=== PATIENT | male | born 1945 | race Caucasian/White ===

== ENCOUNTER 2020-01-05 14:11 | Outpatient (CLI) | payer MEDICARE, SELFPAY ==
[2020-01-05 14:46] LABS: Basophils Percent Auto 0.3 % (0.2-1.2); Eosinophils Absolute Auto 0.1 K/mm3 (0-0.3); Eosinophils Percent Auto 0.7 % (0-4.4); Hematocrit 35.4 % (42.0-52.0); Hemoglobin 11.5 g/dL (14.0-18.0); Immature Granulocyte Absolute 0.09 K/mm3 (0.00-0.031); Immature Granulocyte Percent A 0.8 % (0-0.5); Lymphocytes Absolute Auto 1.11 K/mm3 (0.9-3.2); Lymphocytes Percent Auto 9.5 % (18.3-44.2); Mean Corpuscular HGB Conc 32.5 g/dl (32-36); Mean Corpuscular Hemoglobin 30.3 pg (26-34); Mean Corpuscular Volume 93.4 fl (80-100); Mean Platelet Volume 10.8 fl (7.4-10.4); Monocytes Absolute Auto 1.6 K/mm3 (0.1-0.6); Monocytes Percent Auto 13.7 % (2.6-8.5); Neutrophils Absolute Auto 8.7 K/mm3 (1.3-6.7); Platelet Count Result 204 k/mm3 (150-375); Red Blood Count 3.79 M/mm3 (4.6-6.20); Red Cell Distribution Width 12.8 % (11.5-14.5); White Blood Count 11.6 K/mm3 (4.5-10.0)
[2020-01-05 15:00] LABS: Blood Urea Nitrogen 13 mg/dL (9-20); Calcium 8.8 mg/dL (8.4-10.2); Carbon Dioxide 29 mmol/L (22-30); Chloride 101 mmol/L (98-107); Estimated Glomerular Filt Rate > 60; Glucose 185 mg/dL (75-110); Potassium 4.2 mmol/L (3.4-5.0); Sodium 133 mmol/L (137-145)
[2020-01-05 15:05] LABS: INR 2.8; Prothrombin Time 28.6 Seconds (11.1-14.7)
== END 2020-01-05 14:12 | disposition home or self-care (01) ==
PROVIDERS: PCP Internal Medicine; Visit Provider Internal Medicine
DX: L03.114 Cellulitis of left upper limb (principal); I48.91 Unspecified atrial fibrillation
CPT/HCPCS: 36415; 80048; 85025; 85610

== ENCOUNTER 2020-01-21 20:58 | Emergency (ER) | payer MEDICARE, SELFPAY ==
[2020-01-21 21:03] VITALS: BP 185/84; PULSE 73; RESP 15; TEMP 36.2; O2SAT 98
--- NOTE | 2020-01-21 21:19 | PC.NURSE ---
patient reports that he was unable to void and had a jones cath inserted on friday. had some tests done today to check bladder function and jones was dcd. patient states he was unable to void after the jones was removed. 16f jones inserted with 200cc output
--- NOTE | 2020-01-21 22:05 | ED.MALEGU ---
HPI - Male Genitourinary General Chief complaint: Urogenital-Male Stated complaint: i need to have a catheter put in Time Seen by Provider: 01/21/20 21:11 Source: patient Mode of arrival: ambulatory Limitations: no limitations History of Present Illness HPI Narrative: This patient is a 74 year old male who presents for evaluation of urinary retention. He states he was seen in ER on Friday for urinary retention, and he had a jones catheter placed. Today he was seen in Dr. Andrew' office, and he states he had test performed on his bladder. Per patient his test were ok so he had his jones catheter removed. He states he initially was able to urinate but starting at 130 pm he is having to try to strain to urinate. He states he is not even able to produce dribbles. He had mild abdominal pressure but this resolved once the jones catheter was placed tonight in ER. HE denies hematuria, nausea, vomiting or fever. MD Complaint: other (urinary retention) Related Data Home Medications Medication Instructions Recorded Confirmed phenazopyridine 200 mg tablet 200 mg PO TID 11/15/19 01/12/20 Allergies Allergy/AdvReac Type Severity Reaction Status Date / Time clemastine Allergy Severe URINARY Verified 01/12/20 10:38 RETENTION diphenhydramine Allergy Severe URINARY Verified 01/12/20 10:38 RETENTION menthol Allergy Severe URINARY Verified 01/12/20 10:38 RETENTION phenylpropanolamine Allergy Severe URINARY Verified 01/12/20 10:38 RETENTION tripelennamine Allergy Severe URINARY Verified 01/12/20 10:38 RETNETION triprolidine Allergy Severe URIANRY Verified 01/12/20 10:38 RETENTION Antihistamines - Alkylamine Allergy Unknown Anuria Verified 01/12/20 10:38 chlorpheniramine Allergy Unknown Unknown Verified 01/12/20 10:38 chlorphentermine Allergy Unknown unknown Verified 01/12/20 10:38 lisinopril Allergy Unknown unknown Verified 01/12/20 10:38 pseudoephedrine Allergy Unknown unknown Verified 01/12/20 10:38 tramadol Allergy Unknown unknown Verified 07/12/19 09:15 Review of Systems Review of Systems: All systems reviewed & are unremarkable except as noted in HPI and below Constitutional: Constitutional: Denies body ache(s) and Denies chills Gastrointestinal: Gastrointestinal: Denies abdominal pain, Denies belching and Denies hematochezia Genitourinary: Genitourinary: Denies hematuria, Denies genital lesions and Denies dysuria PMFSH Past Medical History Medical History (Updated 01/22/20 @ 01:11 by Shira Schaefer MD) Atrial fibrillation Body mass index (BMI) of 50.0 to 59.9 in adult Cellulitis Decreased urination Difficulty in urination DM2 (diabetes mellitus, type 2) Encounter for routine adult health examination without abnormal findings Follow up Hyperlipidemia Hypertension Obesity On custodial drug therapy Surgical History Surgical History (Updated 01/22/20 @ 01:03 by Shira Schaefer MD) H/O transurethral resection of prostate Social History Social History Smoking status: Never smoker Alcohol intake: never Gender identity (if verbalized by the patient): Male Exam Narrative: Exam Narrative: GENERAL: Well-appearing, well-nourished, and in no acute distress. HEAD: Normocephalic, atraumatic EYES: PERRLA and EOMI, conjunctiva clear without discharge THROAT:Mucous membranes moist, Oropharynx normal without erythema, exudate, peritonsillar swelling or fluctuance NECK: Supple, without lymphadenopathy or mass RESPIRATORY: No respiratory distress, Airway patent, Respirations non-labored, Clear to auscultation without rales, rhonchi or wheeze HEART: Regular rate and rhythm. No murmur heard. Normal peripheral pulses. ABDOMEN: Soft, nontender, nondistended, normal active bowel sounds. No masses. No rebound or guarding, No organomegaly. EXTREMITIES: No edema, normal strength with full range of motion. SKIN: Warm, dry,
--- NOTE | 2020-01-21 22:28 | PC.NURSE ---
patient reports that he does not believe his jones is in correctly. cath is patent and draining. balloon deflated and cath reinserted per patients request. dark mabel urine continues to drain
[2020-01-21 22:35] LABS: Add Urine Microscopic? YES; Appearance Urine Clear (Clear); Bilirubin Urine Negative (Negative); Blood Urine 2+ (Negative); Color Urine Amber (Yellow); Glucose Urine UA Negative (Negative); Ketones Urine Negative (Negative); Leukocyte Esterase Ur Trace LEU/UL (Negative); Mucus Urine Rare /lpf; Nitrate Urine Positive (Negative); Protein Urine Negative (Negative); RBC Urine 0-2 /hpf (0-2); Specific Grav Ur 1.009 (1.001-1.035); Squamous Epithelial Cell Urine Occasional /hpf (Few); WBC Urine 0-3 /hpf
--- NOTE | 2020-01-21 22:55 | PC.NURSE ---
Report received from RIGO Gleason. Pt's urinary catheter being replaced per patient request that it doesn't feel like it's in the right place .
[2020-01-21] MEDS: LIDOCAINE HCL 2% GEL UROJET 10 ML PKG (23:35)
--- NOTE | 2020-01-21 23:35 | PC.NURSE ---
Per administrative tech and Rosibel, RN, unable to inflate the balloon due to patient c/o pain and bleeding at the meatus. Dr. Schaefer made aware. This RN at bedside to attempt to replace #18 chinese jones. Lidocaine jelly used. Catheter passes into the urethra without difficulty per this RN, but unable to inflate the balloon. Attempt to irrigate unsuccessful. Pt hooked to jones bag with immediate return approx 40cc cricket blood. Attempt numerous times to irrigate the jones as well as inflate the balloon. Dr. Schaefer at bedside with ultrasound to view bladder.
[2020-01-21 23:50] VITALS: BP 169/98; PULSE 78; RESP 18; O2SAT 97
--- NOTE | 2020-01-21 23:50 | PC.NURSE ---
#18F jones placed earlier removed intact after numerous attempts to flush and inflate balloon. Note approx 4 inch long clot removed with catheter removal. #[address] catheter inserted easily per order Dr. Schaefer. Balloon inflated without difficulty. No immediate return of urine noted. Attempt to irrigate and water flows easily into the catheter but doesn't return via bag. Unable to withdraw from catheter. Jones repeatedly irrigated with small amounts of saline and jones begins to drain orange colored urine. Began irrigation with 3L bag and urine clear after approx 100cc infused.
--- NOTE | 2020-01-22 00:01 | PC.NURSE ---
Pt's irrigation to jones decreased (approx 200cc infused) as urine return is clear at this time. Pt denies pain at urinary catheter site or in bladder at present.
[2020-01-22 00:23] LABS: Basophils Absolute Auto 0.1 K/mm3 (0.0-0.1); Basophils Percent Auto 0.6 % (0.2-1.2); Eosinophils Absolute Auto 0.2 K/mm3 (0-0.3); Eosinophils Percent Auto 2.6 % (0-4.4); Hemoglobin 11.4 g/dL (14.0-18.0); Immature Granulocyte Absolute 0.05 K/mm3 (0.00-0.031); Immature Granulocyte Percent A 0.6 % (0-0.5); Lymphocytes Absolute Auto 1.62 K/mm3 (0.9-3.2); Mean Corpuscular HGB Conc 32.6 g/dl (32-36); Mean Corpuscular Hemoglobin 30.2 pg (26-34); Mean Corpuscular Volume 92.6 fl (80-100); Mean Platelet Volume 9.9 fl (7.4-10.4); Monocytes Absolute Auto 0.9 K/mm3 (0.1-0.6); Monocytes Percent Auto 10.3 % (2.6-8.5); Neutrophils Absolute Auto 5.7 K/mm3 (1.3-6.7); Neutrophils Percent Auto 66.9 % (45.5-73.1); Platelet Count Result 247 k/mm3 (150-375); Red Blood Count 3.78 M/mm3 (4.6-6.20); Red Cell Distribution Width 12.8 % (11.5-14.5); White Blood Count 8.5 K/mm3 (4.5-10.0)
[2020-01-22 00:30] VITALS: BP 132/71; PULSE 76; RESP 16; O2SAT 95
[2020-01-22 00:34] LABS: INR 2.2; Prothrombin Time 23.6 Seconds (11.1-14.7)
[2020-01-22 00:35] LABS: Alanine Aminotransferase 25 U/L (4-50); Alkaline Phosphatase 90 U/L (38-126); Aspartate Amino Transferase 26 U/L (17-59); Bilirubin,Total 0.4 mg/dL (0.2-1.3); Blood Urea Nitrogen 14 mg/dL (9-20); Calcium 8.8 mg/dL (8.4-10.2); Carbon Dioxide 24 mmol/L (22-30); Chloride 103 mmol/L (98-107); Estimated CRCL calculation 112 ml/min; Estimated Glomerular Filt Rate > 60; Glucose 144 mg/dL (75-110); Potassium 3.9 mmol/L (3.4-5.0); Sodium 134 mmol/L (137-145)
--- NOTE | 2020-01-22 00:37 | PC.NURSE ---
Urine becoming darker yellow, note small dark clots but urine still continues to flow to jones bag. Increased irrigation till clear, another approx 200cc NS. Pt denies pain.
--- NOTE | 2020-01-22 01:20 | PC.NURSE ---
Note approx 600 cc orange colored urine per bag and orangish/yellow clear per jones. NS bag removed (approx 500 infused total) and irrigation port clamped. Teaching done with leg bag, and pt prefers to leave 4000cc jones bag in place. Home catheter care taught. Discussed emergent sxs with patient to return for and to make sure he contacts Dr. Andrew' office on Friday about jones removal. Pt and son verbalize understanding.
[2020-01-22 01:25] VITALS: BP 135/67; PULSE 76; RESP 18; O2SAT 97
== END 2020-01-22 01:29 | disposition home or self-care (01) ==
PROVIDERS: Emergency Provider General Practice; PCP Internal Medicine
DX: R33.9 Retention of urine, unspecified (principal); N39.0 Urinary tract infection, site not specified; R31.9 Hematuria, unspecified; E11.9 Type 2 diabetes mellitus without complications; I48.91 Unspecified atrial fibrillation; E78.5 Hyperlipidemia, unspecified; I10 Essential (primary) hypertension; E66.9 Obesity, unspecified; Z68.43 Body mass index [BMI] 50.0-59.9, adult; Z79.01 Long term (current) use of anticoagulants; Z79.82 Long term (current) use of aspirin; Z79.84 Long term (current) use of oral hypoglycemic drugs
CPT/HCPCS: 36415; 51700; 80053; 81001; 85025; 85610; 85730; 99283

== ENCOUNTER 2020-01-22 15:53 | Emergency (ER) | payer MEDICARE, SELFPAY ==
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
[2020-01-22 15:59] VITALS: BP 185/84; PULSE 96; RESP 20; TEMP 36.9; O2SAT 98
--- NOTE | 2020-01-22 16:54 | ED.MALEGU ---
HPI - Male Genitourinary General Chief complaint: Urogenital-Male Stated complaint: Johnson complications Time Seen by Provider: 01/22/20 16:14 History of Present Illness HPI Narrative: Patient is a 74-year-old male who presents the ER with urinary retention. He was seen earlier this morning for urinary retention and had a Johnson catheter placed. Reports he is had 4 L of urine output now he is no longer passing urine and he is developing pressure and discomfort in his lower abdomen. He is also started to leak blood around his urinary catheter. Has history of TURP with urinary retention. Sees Dr. Andrew. He takes Coumadin for A. fib. His not been having any positional dizziness and near syncope. Related Data Home Medications Medication Instructions Recorded Confirmed phenazopyridine 200 mg tablet 200 mg PO TID 11/15/19 01/12/20 Allergies Allergy/AdvReac Type Severity Reaction Status Date / Time clemastine Allergy Severe URINARY Verified 01/22/20 15:59 RETENTION diphenhydramine Allergy Severe URINARY Verified 01/22/20 15:59 RETENTION menthol Allergy Severe URINARY Verified 01/22/20 15:59 RETENTION phenylpropanolamine Allergy Severe URINARY Verified 01/22/20 15:59 RETENTION tripelennamine Allergy Severe URINARY Verified 01/22/20 15:59 RETNETION triprolidine Allergy Severe URIANRY Verified 01/22/20 15:59 RETENTION Antihistamines - Alkylamine Allergy Unknown Anuria Verified 01/22/20 15:59 chlorpheniramine Allergy Unknown Unknown Verified 01/22/20 15:59 chlorphentermine Allergy Unknown unknown Verified 01/22/20 15:59 lisinopril Allergy Unknown unknown Verified 01/22/20 15:59 pseudoephedrine Allergy Unknown unknown Verified 01/22/20 15:59 tramadol Allergy Unknown unknown Verified 01/22/20 15:59 Review of Systems Review of Systems: All systems reviewed & are unremarkable except as noted in HPI and below Constitutional: Constitutional: Denies chills, Denies fever(s) and Denies weakness ENT: Denies nasal congestion and Denies sore throat Respiratory: Respiratory: Denies cough and Denies dyspnea Gastrointestinal: Gastrointestinal: Reports abdominal pain, Denies nausea and Denies vomiting Genitourinary: Genitourinary: Reports hematuria, Reports oliguria and Denies dysuria [facility] Past Medical History Medical History (Updated 01/22/20 @ 18:50 by Jerry Cordero MD) Atrial fibrillation Body mass index (BMI) of 50.0 to 59.9 in adult Cellulitis Decreased urination Difficulty in urination DM2 (diabetes mellitus, type 2) Encounter for routine adult health examination without abnormal findings Follow up Hyperlipidemia Hypertension Obesity On superintendent container terminal drug therapy Surgical History Surgical History (Updated 01/22/20 @ 01:03 by Shira Schaefer MD) H/O transurethral resection of prostate Social History Social History Smoking status: Never smoker Alcohol intake: never Gender identity (if verbalized by the patient): Male Exam Narrative: Exam Narrative: GENERAL: Well-appearing, well-nourished, and in no acute distress. HEAD: Normocephalic, atraumatic. ENT: Mucous membranes moist. CHEST: Clear to auscultation. No respiratory distress. HEART: Regular rate and rhythm. Normal peripheral pulses. ABDOMEN: Soft, nontender, nondistended. : Uncircumcised penis with constant flow of blood from the urethra. No tenderness to the testicles or penis. EXTREMITIES: Normal range of motion. No edema. NEURO: Alert and oriented x3. PSYCH: Normal mood and affect. Course Course Emergency Course: Urology has been in to see the patient has placed a catheter at the bedside. Patient had a false tract with bleeding. The bleeding is now controlled. There is a faint hue of blood in the urine but after being instrumented there is no evidence of clot or anything in the bladder. Patient is pain-free. Patient instructed to take the Keflex that wa
--- NOTE | 2020-01-22 16:58 | PC.NURSE ---
removed [address] catheter. Pt had blood draining from penis. Attempted insertion of 24g 3 way catheter, started getting drainage in catheter tubing but could not advance catheter more than [address] Balloon inflated with 30 cc sterile saline. Pt complained of extreme pain and pressure. Gil not able to see balloon in bladder on ultrasound. Catheter balloon deflated and catheter removed. Urology called. Pt to cat scan.
[2020-01-22 16:59] LABS: Basophils Percent Auto 0.2 % (0.2-1.2); Eosinophils Absolute Auto 0.1 K/mm3 (0-0.3); Eosinophils Percent Auto 0.7 % (0-4.4); Hematocrit 36.1 % (42.0-52.0); Hemoglobin 11.9 g/dL (14.0-18.0); Immature Granulocyte Absolute 0.06 K/mm3 (0.00-0.031); Immature Granulocyte Percent A 0.5 % (0-0.5); Lymphocytes Absolute Auto 1.06 K/mm3 (0.9-3.2); Lymphocytes Percent Auto 8.6 % (18.3-44.2); Mean Corpuscular Hemoglobin 30.1 pg (26-34); Mean Corpuscular Volume 91.4 fl (80-100); Mean Platelet Volume 10.2 fl (7.4-10.4); Monocytes Absolute Auto 1.2 K/mm3 (0.1-0.6); Monocytes Percent Auto 9.4 % (2.6-8.5); Neutrophils Absolute Auto 9.9 K/mm3 (1.3-6.7); Neutrophils Percent Auto 80.6 % (45.5-73.1); Platelet Count Result 273 k/mm3 (150-375); Red Blood Count 3.95 M/mm3 (4.6-6.20); Red Cell Distribution Width 12.6 % (11.5-14.5); White Blood Count 12.3 K/mm3 (4.5-10.0)
[2020-01-22 17:09] LABS: INR 2.3; Partial Thromboplastin Time 40.7 SECONDS (22.3-36.8)
[2020-01-22 17:10] LABS: Blood Urea Nitrogen 10 mg/dL (9-20); Carbon Dioxide 25 mmol/L (22-30); Chloride 100 mmol/L (98-107); Estimated CRCL calculation 110 ml/min; Estimated Glomerular Filt Rate > 60; Glucose 165 mg/dL (75-110); Potassium 4.1 mmol/L (3.4-5.0); Sodium 133 mmol/L (137-145)
--- NOTE | 2020-01-22 18:26 | PC.NURSE ---
urology able to place 20fr catheter with cystoscope
[2020-01-22 18:36] LABS: Add Urine Microscopic? YES; Appearance Urine Cloudy (Clear); Bacteria Urine Trace /hpf; Bilirubin Urine Negative (Negative); Blood Urine 3+ (Negative); Color Urine Red (Yellow); Glucose Urine UA Negative (Negative); Ketones Urine Negative (Negative); Leukocyte Esterase Ur Negative LEU/UL (Negative); Nitrate Urine Negative (Negative); Protein Urine 2+ mg/dL (Negative); RBC Urine >75 /hpf (0-2); Specific Grav Ur 1.008 (1.001-1.035); Urobilinogen Urine Negative mg/dL (<2.0); WBC Urine 31-50 /hpf
--- NOTE | 2020-01-22 21:07 | WPDURCON ---
Assessment and Plan Assessment and plan (1) Complication of Johnson catheter: Onset Date: 01/22/20 Code(s): T83.9XXA - Unspecified complication of genitourinary prosthetic device, implant and graft, initial encounter Status: Acute (2) Injury of male urethra: Onset Date: 01/22/20 Code(s): S37.30XA - Unspecified injury of urethra, initial encounter Status: Acute Assessment and Plan: I attempted to place 2 large bore hematuria catheters without success under sterile conditions at the bedside. Therefore, with the patient's approval I performed bedside cystoscopy with urethral dilation and placement of catheter over a wire. The patient tolerated the procedure well. 1. Recommend discharge with catheter, there was no significant clot within the bladder upon cystoscopic examination. 2. Recommend antibiotics to cover uropathogens given urethral trauma. 3. Maintain catheter until f/u with Dr. Andrew. Urology Consult Note HPI Date Seen: 01/22/20 Primary Care Provider: Tru Cabrera MD Consult Narrative Narrative: Gerber Adams is a 74 year old male with a history of BPH who underwent TURP in 08/[address] Andrew. He has struggled with urinary retention for several years including after TURP. He had a catheter placed earlier this week and passed a trial of void in the office. He subsequently was unable to void and presented to the [facility] ER last night where a catheter was placed which the patient reports was painful. Over the course of the day today it has stopped draining and he returned to the ER. A larger 22F 3 way catheter was then attempted and was found on bedside ultrasound to likely not be within the bladder lumen. Of note, a 30cc balloon was fully inflated per ER nursing. The catheter was removed. He reports inability to void and drainage of blood from the urethral meatus. Review of Systems Review of Systems: All systems reviewed & are unremarkable except as noted in HPI and below (Inability to void, cahteter clotted off, abdominal pain.) Constitutional: Constitutional: Reports as per HPI Eyes: Eyes: Reports no additional eye complaints ENT: Reports system reviewed and no additional complaints, except as documented Genitourinary: Genitourinary: Reports hematuria Neurologic: Reports system reviewed and no additional complaints, except as documented Psychiatric: Psychiatric: Reports no additional psychiatric complaints PMFSH Past Medical History Medical History (Updated 01/22/20 @ 21:19 by Neri Hare MD) Atrial fibrillation Body mass index (BMI) of 50.0 to 59.9 in adult Cellulitis Decreased urination Difficulty in urination DM2 (diabetes mellitus, type 2) Encounter for routine adult health examination without abnormal findings Follow up Hyperlipidemia Hypertension Obesity On jail drug therapy Surgical History Surgical History (Updated 01/22/20 @ 01:03 by Shira Schaefer MD) H/O transurethral resection of prostate Social History Social History Smoking status: Never smoker Alcohol intake: never Gender identity (if verbalized by the patient): Male Meds Home Medications and Allergies Home Medications Medication Instructions Recorded Confirmed Type allopurinol 100 mg tablet 100 mg PO DAILY #90 tablet 08/06/19 01/12/20 Rx aspirin 81 mg tablet,delayed 81 mg PO DAILY #90 tablet 10/21/19 01/12/20 Rx release phenazopyridine 200 mg tablet 200 mg PO TID 11/15/19 01/12/20 History amlodipine 5 mg tablet 5 mg PO DAILY #90 tablet 12/29/19 01/12/20 Rx losartan 100 mg tablet 100 mg PO DAILY #90 tablet 12/29/19 01/12/20 Rx metformin 500 mg tablet,extended 2,000 mg PO DAILY #360 tablet 12/29/19 01/12/20 Rx release 24 hr metoprolol tartrate 25 mg tablet 25 mg PO DAILY #90 tablet 12/29/19 01/12/20 Rx blood sugar diagnostic #100 each 12/30/19 01/12/20 Rx lancets #100 each 12/30/19 01/12/20 Rx b
--- NOTE | 2020-01-22 21:23 | P.OP_ITS ---
Procedure Note - Detailed Date of procedure: 01/22/20 Pre-op diagnosis: Johnson complications Post-op diagnosis: same Procedure performed: 1. Cystoscopy and urethral dilation 2. Complex urethral catheter placement 3. Irrigation of bladder. Description of procedure: I prepped the genitalia with betadine prep solution and draped the penis in [facility] standard sterile fashion. I then attempted to place a 24F and then a 22F Hematuria catheter without success. After discussion with the patient, in an attempt to avoid a trip to the operating room, we elected to perform cystoscopy. I advanced the cystoscope and found a traumatic bulbar urethral injury. I then advanced a wire through the true lume at 12:00 and negotiated the scope into the bladder thereby dilating the urethra and moving the urethral flap to allow patency. I inspected the bladder, which was quite difficult because of a poor light source and found no significant clot. I removed the scope leaving the wire behind and advanced a 20F [place] over the wire into the bladder. 10cc of sterile water was placed within the balloon. The catheter immediately drained 600 cc of urine. I then irrigated and no clot returned. The foreskin was reduced by ER nursing (Johnathon) who assisted me with this procedure. Anesthesia: none Surgeon: Neri Hare MD Drains: Yes (20F [place] Catheter) Condition: stable
== END 2020-01-22 19:15 | disposition home or self-care (01) ==
PROVIDERS: Emergency Provider Emergency Medicine; PCP Internal Medicine
DX: T83.9XXA Unspecified complication of genitourinary prosthetic device, implant and graft, initial encounter (principal); S37.39XA Other injury of urethra, initial encounter; Y84.6 Urinary catheterization as the cause of abnormal reaction of the patient, or of later complication, without mention of misadventure at the time of the procedure; I48.91 Unspecified atrial fibrillation; Z79.01 Long term (current) use of anticoagulants; E11.9 Type 2 diabetes mellitus without complications; E78.5 Hyperlipidemia, unspecified; I10 Essential (primary) hypertension; E66.9 Obesity, unspecified; Z68.43 Body mass index [BMI] 50.0-59.9, adult; K80.20 Calculus of gallbladder without cholecystitis without obstruction; K57.90 Diverticulosis of intestine, part unspecified, without perforation or abscess without bleeding; R82.998 Other abnormal findings in urine
CPT/HCPCS: 36415; 52281; 74176; 80048; 81001; 85025; 85610; 85730; 87086; 99284

== ENCOUNTER 2020-01-23 06:42 | Emergency (ER) | payer MEDICARE, SELFPAY ==
[2020-01-23 06:45] VITALS: BP 151/66; PULSE 73; RESP 18; TEMP 36.7; O2SAT 97
--- NOTE | 2020-01-23 07:03 | PC.NURSE ---
LEWIS CATH CLEANED. DRIED BLOOD ON PENIS. CLEANSED. NEW STAT LOCK APPLIED. LEWIS CATH DRAINING YELLOW URINE. PT REFUSED TO SEE MD. PT EDUCATION OF RISKS OF LEAVING WITHOUT SEEING MD. VERBALIZES UNDERSTANDING. EDUCATION OF CATH CARE. VERBALIZES UNDERSTANDING. NO FURTHER QUESTIONS. PT AMBULATED TO EXIT WITH STEADY GAIT
== END 2020-01-23 07:10 | disposition left against medical advice (07) ==
LOC: ANHED 07:08
PROVIDERS: PCP Internal Medicine
DX: Z46.6 Encounter for fitting and adjustment of urinary device (principal)
CPT/HCPCS: 99199

== ENCOUNTER 2020-01-24 23:41 | Emergency (ER) | payer MEDICARE, SELFPAY ==
[2020-01-24 23:46] VITALS: BP 175/68; PULSE 78; RESP 16; TEMP 35.9; O2SAT 97
--- NOTE | 2020-01-25 00:11 | PC.NURSE ---
pt left the dept, did not want to wait explained that there were only 4 people in front of him and encouraged him to stay pt reiterated that would leave. pt ambulated out of ED with steady gait at 0010
== END 2020-01-25 00:11 | disposition left against medical advice (07) ==
LOC: ANHED 02-11 11:29
PROVIDERS: PCP Internal Medicine
DX: T83.9XXA Unspecified complication of genitourinary prosthetic device, implant and graft, initial encounter (principal)
CPT/HCPCS: 99199

== ENCOUNTER 2020-03-17 11:57 | Outpatient (CLI) | payer MEDICARE, SELFPAY ==
--- NOTE | 2020-03-17 | ECHO_ITS ---
Patient Info Name: Gerber Adams Age: 74 years : 1945 Gender: Male Ht: 67 in Wt: 323 lbs BSA: 2.72 m2 HR: 70 bpm BP: 149 / 82 mmHg Technical Quality: Good Exam Date: 03/17/2020 1:05 PM Exam Location: [facility] Patient Status: Outpatient Admit Date: 03/17/2020 Staff Ordering Physician: PHYSICIAN NOT ON STAFF, NONSTAFF Receiving Operator: Calin Cueto, DEANNA, RT Attending Provider: PHYSICIAN NOT ON STAFF, NONSTAFF Exam Type: CA echo doppler color flow Study Info Indications I48.0 - Paroxysmal atrial fibrillation Complete two-dimensional, color flow and Doppler transthoracic echocardiogram is performed. Summary 1. Left ventricular chamber dimension is normal. 2. Left ventricular systolic function is normal, estimated at 60-65%. 3. There is moderately increased left ventricular wall thickness. 4. The left ventricular diastolic function is abnormal. 5. E/e' 17 is elevated. 6. Global longitudinal strain is abnormal at -15.5%. 7. Left atrial chamber dimension is moderately enlarged. 8. There is moderate aortic valve sclerosis. 9. There is mild aortic valve stenosis with a peak velocity of 324 cm/s, mean gradient of 21 mmHg, and aortic valve area of 1.6 cm2. 10. The mitral valve has mildly calcified annulus. 11. There is mild to moderate mitral valve regurgitation. 12. There is mild tricuspid valve regurgitation. 13. Moderate pulmonary hypertension, estimated pulmonary arterial systolic pressure is 51 mmHg. 14. Small atheroma in anterior and posterior aortic root. 15. Dilated inferior vena cava with >50% collapse upon inspiration consistent with elevated right atrial pressure, 10 mmHg. Left Ventricle E/e' 17 is elevated. Global longitudinal strain is abnormal at -15.5%. Left ventricular chamber dimension is normal. Left ventricular systolic function is normal, estimated at 60-65%. There is moderately increased left ventricular wall thickness. The left ventricular diastolic function is abnormal. Right Ventricle Right ventricular chamber dimension is normal. Right ventricular systolic function is normal. Left Atria Left atrial chamber dimension is moderately enlarged. Right Atria Right atrial chamber dimension is normal. Aortic Valve The aortic valve is probable trileaflet. There is moderate aortic valve sclerosis. There is mild aortic valve stenosis with a peak velocity of 324 cm/s, mean gradient of 21 mmHg, and aortic valve area of 1.6 cm2. There is no aortic valve regurgitation. Pulmonic Valve There is no pulmonic regurgitation. Mitral Valve The mitral valve has mildly calcified annulus. There is no mitral valve stenosis. There is mild to moderate mitral valve regurgitation. Tricuspid Valve There is mild tricuspid valve regurgitation. Moderate pulmonary hypertension, estimated pulmonary arterial systolic pressure is 51 mmHg. Pericardium/Pleural There is no pericardial effusion. Inferior Vena Cava Dilated inferior vena cava with >50% collapse upon inspiration consistent with elevated right atrial pressure, 10 mmHg. Aorta Small atheroma in anterior and posterior aortic root. The aortic root size at the sinus of Valsalva is normal. Left Ventricular Outflow Tract Name Value Normal LVOT 2D
== END 2020-03-17 11:58 | disposition home or self-care (01) ==
PROVIDERS: PCP Internal Medicine
DX: I48.0 Paroxysmal atrial fibrillation (principal); R06.00 Dyspnea, unspecified; I08.3 Combined rheumatic disorders of mitral, aortic and tricuspid valves
CPT/HCPCS: 93306

== ENCOUNTER 2020-03-20 14:04 | Outpatient (CLI) | payer MEDICARE, SELFPAY ==
--- NOTE | ~2020-03-20 | US_ITS ---
EXAMINATION: US art doppler w press LE BI DATE: 03/20/2020 15:20 INDICATION: Diabetic with hypercholesterolemia and hypertension presenting with decreased pulses. TECHNIQUE: Segmental pressures and plethysmographic and Doppler waveforms of the brachial and lower e xtremity arteries were obtained. COMPARISON: None. FINDINGS: Right and left brachial artery pressures of 162 mm Hg and 152 mm Hg, respectively, are concordant (no rmal difference <= 30 mmHg). The right and left high-thigh pressure indices were unable to be obtaine d due to patient body habitus precluding assessment of the pressures in the bilateral thighs. The art eries of the left lower leg were also unable to be occluded precluding assessment of a left KONG. The right ankle-brachial index (KONG) is 1.03 (normal >= 0.9-1). The right great toe-brachial index (T BI) is 0.93 (normal >= 0.6-0.8). The right lower extremity segmental pressure gradients are increased between the right posterior tibial artery and both the more proximal [id number] right popliteal artery as well as the right posterior tibial artery at the same level (normal gradients <= 20-30 mmHg between adjacent levels on the same leg or the same levels on the two legs). Arterial waveforms are biphasic with brisk systolic upstrokes throughout the right lower limb. The left TBI is 0.86. Arterial waveforms are biphasic with brisk systolic upstrokes throughout the le ft lower limb. IMPRESSION: 1. Normal right KONG and bilateral TBI's. No significant arterial occlusive disease to either lower li mb. Reviewed, dictated and finalized at location A. IMPRESSION: 1. Normal right KONG and bilateral TBI's. No significant arterial occlusive dise ase to either lower limb.
== END 2020-03-20 14:05 | disposition home or self-care (01) ==
PROVIDERS: PCP Internal Medicine
DX: R60.0 Localized edema (principal); E11.69 Type 2 diabetes mellitus with other specified complication
CPT/HCPCS: 93923

== ENCOUNTER 2020-08-01 08:01 | Outpatient (CLI) | payer MEDICARE, SELFPAY ==
--- NOTE | ~2020-08-01 | US_ITS ---
EXAMINATION: US carotid duplex BI DATE: 08/01/2020 08:58 INDICATION: Vertigo TECHNIQUE: Grayscale, color Doppler, and pulsed Doppler images of the cervical carotid arteries were obtained. The degree of vessel stenosis is placed in one of the following categories: normal, <50%, 5 0-69%, >=70% but less than near-occlusion, near-occlusion, or total occlusion. Note that percent sten osis relative to normal distal artery lumen diameter is indirectly measured from velocity measurement s as described by Donnie, et al. Radiology 2003; [id number]. COMPARISON: None. FINDINGS: RIGHT: The right common carotid artery (CCA) peak systolic velocity (PSV) is 116 cm/s. The right internal ca rotid artery (ICA) PSV is 187 cm/s. The right ICA end-diastolic velocity (EDV) is 57 cm/s. The right ICA/CCA PSV ratio is 1.6. Grayscale and color Doppler images yield an estimate of 50-69% diameter red uction from plaque in the ICA. The external carotid artery (ECA) PSV is 179 cm/s. There is antegrade flow in the right vertebral artery. LEFT: The left CCA PSV is 167 cm/s. The left ICA PSV is 119 cm/s. The left ICA EDV is 37 cm/s. The left ICA /CCA PSV ratio is 0.7. Grayscale and color Doppler images yield an estimate of <50% diameter reductio n from plaque in the ICA. The left ECA is not clearly visualized. There is antegrade flow in the left vertebral artery. IMPRESSION: 1. 50-69% stenosis in the right internal carotid artery. 2. <50% stenosis in the left internal carotid artery. Reviewed, dictated and finalized at location A. XER
== END 2020-08-01 08:02 | disposition home or self-care (01) ==
PROVIDERS: PCP Internal Medicine; Visit Provider Internal Medicine
DX: I65.23 Occlusion and stenosis of bilateral carotid arteries (principal)
CPT/HCPCS: 93880

== ENCOUNTER 2020-08-21 14:43 | Outpatient (CLI) | payer MEDICARE, SELFPAY ==
--- NOTE | ~2020-08-21 | CT_ITS ---
EXAMINATION: CTA neck DATE: 08/21/2020 15:30 INDICATION: Right carotid stenosis. TECHNIQUE: Computed tomographic angiography (CTA) of the neck was performed with 100 mL Omnipaque-350 intravenous contrast. Automated exposure control and iterative reconstruction technique were employe d. The dose-length product was 759.84 mGy-cm. Maximum intensity projection 3D-reconstructions were cr eated by the technologist on a separate workstation. COMPARISON: Ultrasound 08/01/2020 FINDINGS: There are nodules in the thyroid measuring up to 14 mm, likely not clinically significant. There are no pathologically enlarged lymph nodes. There is no significant stenosis of the vertebral a rteries. There is 56% stenosis of the proximal right internal carotid artery relative to normal dist al artery lumen diameter (NASCET criteria). There is 17% stenosis of the proximal left internal carot id artery relative to normal distal artery lumen diameter. There is a chronic small foreign body in l eft neck posterior to left thyroid lobe. There is moderate cervical spondylosis. IMPRESSION: 1. 56% stenosis of the proximal right internal carotid artery relative to normal distal artery lumen diameter (NASCET criteria). 2. 17% stenosis of the proximal left internal carotid artery relative to normal distal artery lumen d iameter. Reviewed, dictated and finalized at location B. S LEADER IMPRESSION: 1. 56% stenosis of the proximal right internal carotid artery relative to abhijit l distal artery lumen diameter (NASCET criteria). 2. 17% stenosis of the proximal left internal carotid artery relative to normal distal artery lumen diameter.
[2020-08-21 15:38] LABS: Estimated Glomerular Filt Rate > 60
== END 2020-08-21 14:44 | disposition home or self-care (01) ==
PROVIDERS: PCP Internal Medicine; Visit Provider Internal Medicine
DX: I65.23 Occlusion and stenosis of bilateral carotid arteries (principal)
CPT/HCPCS: 70498; Q9967

== ENCOUNTER 2020-11-14 14:26 | Outpatient (CLI) | payer MEDICARE, SELFPAY | END 2020-11-14 14:27 | disposition home or self-care (01) | LOC: ANHCOVIDVC 14:26 | PROVIDERS: PCP Internal Medicine | DX: Z23 Encounter for immunization (principal) | CPT/HCPCS: 0001A; 91300 ==

== ENCOUNTER 2020-12-05 14:36 | Outpatient (CLI) | payer MEDICARE, SELFPAY | END 2020-12-05 14:37 | disposition home or self-care (01) | LOC: ANHCOVIDVC 14:36 | PROVIDERS: PCP Internal Medicine | DX: Z23 Encounter for immunization (principal) | CPT/HCPCS: 0002A; 91300 ==

== ENCOUNTER 2022-03-07 10:27 | Outpatient (CLI) | payer MEDICARE, SELFPAY ==
[2022-03-07 11:44] LABS: Basophils Percent Auto 0.5 % (0.2-1.2); Eosinophils Absolute Auto 0.2 K/mm3 (0-0.3); Eosinophils Percent Auto 2.7 % (0-4.4); Hematocrit 28.3 % (42.0-52.0); Hemoglobin 8.7 g/dL (14.0-18.0); Immature Granulocyte Absolute 0.11 K/mm3 (0.00-0.031); Immature Granulocyte Percent A 1.5 % (0-0.5); Lymphocytes Absolute Auto 0.98 K/mm3 (0.9-3.2); Lymphocytes Percent Auto 13.4 % (18.3-44.2); Mean Corpuscular HGB Conc 30.7 g/dl (32-36); Mean Corpuscular Volume 97.6 fl (80-100); Mean Platelet Volume 9.6 fl (7.4-10.4); Monocytes Absolute Auto 0.8 K/mm3 (0.1-0.6); Monocytes Percent Auto 10.4 % (2.6-8.5); Neutrophils Absolute Auto 5.2 K/mm3 (1.3-6.7); Neutrophils Percent Auto 71.5 % (45.5-73.1); Platelet Count Result 366 k/mm3 (150-375); Red Cell Distribution Width 16.4 % (11.5-14.5); White Blood Count 7.3 K/mm3 (4.5-10.0)
[2022-03-07 11:53] LABS: INR 1.3; Prothrombin Time 15.4 Seconds (11.1-14.7)
== END 2022-03-07 10:28 | disposition home or self-care (01) ==
LOC: ANHLAB 10:29
PROVIDERS: PCP Internal Medicine; Visit Provider Internal Medicine
DX: D64.9 Anemia, unspecified (principal); I48.91 Unspecified atrial fibrillation; Z79.899 Other long term (current) drug therapy
CPT/HCPCS: 36415; 85025; 85610

== ENCOUNTER 2022-08-12 08:35 | Outpatient (RCR) | payer MEDICARE, SELFPAY ==
[2022-08-12 09:30] VITALS: BMI 50.2
== END 2022-10-28 14:36 | disposition home or self-care (01) ==
LOC: ANHWOC 08:35
PROVIDERS: PCP Internal Medicine; Visit Provider Internal Medicine
DX: R60.0 Localized edema (principal)
CPT/HCPCS: 99213; G0463